=== PATIENT | male | born 1980 | race Caucasian/White ===

== ENCOUNTER 2017-05-26 21:39 | Emergency (ER) | payer OTHER ==
[~2017-05-26] VITALS: Ht 180.3 cm; Wt 90.7 kg
[2017-05-26 21:45] VITALS: Ht 180.3 cm; Wt 90.7 kg
[2017-05-26 22:30] VITALS: BP 112/76
== END 2017-05-26 22:30 | disposition home or self-care (01) ==
LOC: ED 21:39
DX: M25.571 Pain in right ankle and joints of right foot (principal); Z88.0 Allergy status to penicillin